=== PATIENT | male | born 1945 | race Caucasian/White ===

== ENCOUNTER 2017-10-23 01:32 | Inpatient (IN) | payer OTHER, MEDICARE ==
[~2017-10-23] VITALS: Ht 188 cm; Wt 81.6 kg
[~2017-10-23 01:32] MED LIST: AMLODIPINE BESY10 M1 PO; ASPIRIN81 M4 PO; CITRUCEL500 M1 PO; FLOMAX0.4 M1 PO; FLUTICASONE PRO16 GM NASB; FUROSEMIDE20 M1 PO; GLUCOSAMINE CO1 EAC1 PO; NEXIUM40 M1 PO
--- NOTE | 2017-10-23 09:08 | Admission Core Measures ---
Acute Coronary Syndrome (CM) ACS Core Measures Acute Coronary Syndrome Diagnosis No Congestive Heart Failure (NEW) CHF Core Measures Congestive Heart Failure Diagnosis No Cerebrovascular Accident (NEW) CVA Core Measures CVA/TIA Diagnosis No Venous Thromboembolism VTE Core Micheal (View Protocol) VTE Risk Factors Surgery No Mechanical VTE Prophylaxis d/t N/A MechProphylax Ordered No VTE Pharm Prophylaxis d/t NA PharmProphylax ordered Problem List As ranked by this Provider includes Assessment & Plan 1. Unilateral primary osteoarthritis, right hip HOME MEDS Home Med List Amlodipine Besylate 10 MG TABLET 1 TAB PO DAILY BP (Reported) Aspirin (Aspirin*) 81 MG TAB.CHEW 1 TAB PO DAILY HEART HEALTH (Reported) Esomeprazole (Nexium) 40 MG CAPSULE.DR 1 CAP PO DAILY REFLUX (Reported) Fluticasone Propionate 50 MCG/ACTUATION SPRAY.SUSP 2 SPRAY [place] DAILY ALLERGIES (Reported) Furosemide 20 MG TABLET 1 TAB PO DAILY BP (Reported) Glucosamine/D3/Boswellia Mercy (Glucosamine Complex Tablet) 1,500 MG-400 UNIT- 100 MG TABLET 1 PO DAILY SUPP (Reported) Methylcellulose (Citrucel) 500 MG TABLET 1 PO DAILY CONSTIPATION (Reported) Tamsulosin HCl (Flomax) 0.4 MG CAP.ER.24H 2 CAP PO DAILY PROSTATE (Reported)
[2017-10-23] MEDS ORDERED: DILAUDID2 M1 PO (09:09)
[2017-10-23] MEDS ORDERED: MIRALAX17 G1 PO (09:09)
[2017-10-23] MEDS ORDERED: COLACE100 M1 PO (09:09)
[2017-10-23] MEDS ORDERED: MS CONTIN15 M3 PO (09:09)
[2017-10-23] MEDS ORDERED: ASPIRIN EC325 M2 PO (09:09)
--- NOTE | 2017-10-23 09:13 | Patient Discharge Instructions ---
Discharge Instructions General Discharge Information You were seen/treated for: Right hip pain related to unilateral primary osteoarthritis You had these procedures: Right total hip replacement Watch for these problems: Increasing pain despite the use of pain medication Increasing redness, warmth or swelling Drainage of any type from incision Inability to bear weight on operative leg Persistent nausea and vomiting Fever greater than 101.5 degrees Do not soak the wound: Yes No bath, but you may shower: Yes Other wound care: Please keep wound clean and dry. No ointments or lotions of any type on or near incision at any time. No exceptions. Your dressing will be changed by your nurse on the second day after your surgery. Daily dry dressing changes are recommended each day thereafter. Do not soak your wound in a bath at any time until otherwise indicated by your surgeon. You may shower, please dry wound immediately after shower with a clean towel. Special Instructions: Aspirin: You are taking this medication to help prevent blood clot formation. Please take with food to protect your stomach lining. Please take as directed. Constipation: Pain medication can cause constipation. Dr. Knott has recommended that you take Colace and miralax each day. You may discontinue this medication if you develop loose stool or diarrhea. If you wish to continue this medication, it is available over the counter. If you are unable to move your bowels after several days, if you are unable to pass gas and are developing bloating, nausea, or vomiting as a result, please contact your doctor. Diet Continue normal diet: Yes Recommended Diet: Regular Activity Full Activity/No Limits: No Activity Self Limited: Yes Pounds, do NOT lift more than: 10 Acute Coronary Syndrome Inclusion Criteria At DC or during hospital stay patient has or had the following: ACS DIAGNOSIS No Discharge Core Measures Meds if any: Prescribed or Continued at Discharge Meds if any: NOT Prescribed or Continued at Discharge Congestive Heart Failure Inclusion Criteria At DC or during hospital stay patient has or had the following: CHF DIAGNOSIS No Discharge Core Measures Meds if any: Prescribed or Continued at Discharge Meds if any: NOT Prescribed or Continued at Discharge Cerebrovascular accident Inclusion Criteria At DC or during hospital stay patient has or had the following: CVA/TIA Diagnosis No Discharge Core Measures Meds if any: Prescribed or Continued at Discharge Meds if any: NOT Prescribed or Continued at Discharge Venous thromboembolism Inclusion Criteria VTE Diagnosis No VTE Type NONE VTE Confirmed by (Test) NONE Discharge Core Measures - Per Current guidelines, there needs to be overlap - treatment for the first 5 days of Warfarin therapy. - If discharged on Warfarin prior to 5 days of - overlap therapy, the patient will need to be - assessed for post discharge needs including - *Post discharge parental anticoagulation - *Warfarin and/or parental anticoagulation education - *Follow up date to check INR post discharge At least 5 days overlap therapy as Inpatient No Meds if any: Prescribed or Continued at Discharge Note: Overlap Therapy is Warfarin and Anticoagulant Meds if any: NOT Prescribed or Continued at Discharge
--- NOTE | 2017-10-23 09:14 | Surgical Discharge Summary ---
Visit Information Visit Dates Admission Date: 10/23/17 History of Present Illness Chief Complaint: Right hip pain related to unilateral primary osteoarthritis Surgical History Pertinent Surgical History: non-contributory Review of Systems: See H&P Hospital Course Course Attending Physician: Tonio Knott MD Primary Care Physician: Drew Hernandez MD Hospital Course: Patient was admitted to the hospital for an elective total joint replacement. The procedure was tolerated well and patient was transferred to a general surgical floor. Diet was advanced and tolerated, and the patient voided spontaneously. The patient was evaluated and treated by physical therapy. At the time of hospital discharge, the vital signs were stable, neurovascular status was intact, and pain was controlled with the use of oral pain medications. Allergies: Coded Allergies: Beta-Blockers (Beta-Adrenergic Bloc (UNKNOWN 10/22/17) PER [facility] PRE-OP ORDER SHEET. -CG 10/22/17 irbesartan (From AVAPRO) (UNKNOWN 10/22/17) PER [facility] PRE-OP ORDER SHEET. -CG 10/22/17 Disposition Summary Disposition Principal Diagnosis: Right hip unilateral primary osteoarthritis Additional Diagnosis: None Discharge Disposition: home health services Discharge Instructions General Discharge Information Code Status: Full Code Patient's Diet: Regular, advance as tolerated Patient's Activity: Weight-bear as tolerated Follow-Up Instructions/Appts: Follow up with Dr. Knott in 6 weeks from date of surgery. Please call his office to arrange and/or confirm this appointment. Medications at Discharge Discharge Medications: Stop taking the following medications: Aspirin (Aspirin*) 81 MG TAB.CHEW ORAL DAILY Methylcellulose (Citrucel) 500 MG TABLET ORAL DAILY Continue taking these medications: Amlodipine Besylate (Amlodipine Besylate) 10 MG TABLET 1 Tablet ORAL DAILY Esomeprazole (Nexium) 40 MG CAPSULE.DR 1 Capsule ORAL DAILY Fluticasone Propionate (Fluticasone Propionate) 50 MCG/ACTUATION SPRAY.SUSP 2 [place] Both sides of nose DAILY Furosemide (Furosemide) 20 MG TABLET 1 Tablet ORAL DAILY Glucosamine/D3/Boswellia Mercy (Glucosamine Complex Tablet) 1,500 MG-400 UNIT- 100 MG TABLET 1 ORAL DAILY Tamsulosin HCl (Flomax) 0.4 MG CAP.ER.24H 2 Capsule ORAL DAILY Start taking the following new medications: Aspirin (Ecotrin*) 325 MG TABLET.DR 1 Tablet ORAL TWICE DAILY Qty = 60 No Refills Docusate Sodium (Colace) 100 MG CAPSULE 1 Capsule ORAL TWICE DAILY Qty = 14 No Refills Instructions: DISCONTINUE USE IF YOU DEVELOP LOOSE STOOL OR DIARRHEA Polyethylene Glycol 3350 (Miralax) 17 GRAM POWD.PACK 1 Packet ORAL DAILY Qty = 7 No Refills Instructions: dissolve in water, DISCONTINUE USE IF YOU DEVELOP LOOSE STOOL OR DIARRHEA Morphine Sulfate (Ms Contin) 15 MG TABLET.ER 1 Tablet ORAL TWICE DAILY Qty = 6 No Refills Hydromorphone HCl (Dilaudid) 2 MG TABLET 1-2 Tablet ORAL EVERY 4-6 HOURS NEEDED as needed for PAIN Qty = 36 No Refills
--- NOTE | 2017-10-23 10:00 | RADIOLOGY REPORT ---
EXAMINATION: XR HIP, RIGHT CLINICAL INFORMATION: Status post right total hip replacement.. COMPARISON: There are no prior studies for comparison. TECHNIQUE: AP and crosstable lateral views of the right hip. FINDINGS: A bipolar right hip prosthesis is present. Postsurgical changes are present in the overlying soft tissues. The bipolar prosthesis is near anatomic in alignment. The surrounding [place] bony structures are unremarkable. IMPRESSION: Bipolar right hip prosthesis in anatomic alignment, soft tissue postsurgical changes.
[2017-10-23 12:00] VITALS: BP 138/80
--- NOTE | 2017-10-23 12:51 | PN- Orthopedic ---
Subjective Subjective: POSTOP CHECK Patient reports pain is well controlled. He reports lightheadedness and felt like he was walking on air when he attempted to ambulate with PT. PT informed the patient that they would return in an hour to work with him. He states he tolerated lunch and denies voiding yet. Objective Vital Signs and I&Os Intake & Output 10/23 1600 10/23 0800 10/23 0000 10/22 1600 10/22 0800 10/22 0000 Intake Total Output Total Balance Patient 180 lb Weight Physical Exam: Vitals - afebrile, VSS Gen - resting comfortably accompained by his in NAD Cardiac - S1S2 noted, RRR Lungs - CTAB Abd - soft, nt, nd Ext - R hip dressing c/d/i, surronding swelling noted, moves all extremities, sensory and motor intact. Alps in place, no edema or calf tenderness B/L Current Medications: Current Medications Sig/Vanessa Start time Last Medication Dose Route Stop Time Status Admin Acetaminophen 1,000 MG Q6 10/23 1200 AC 10/23 IV 10/24 0601 1203 Acetaminophen 0 .STK-MED ONE 10/23 0718 DC PO Acetaminophen 975 MG ONCE 10/23 0000 DC PO 10/23 2359 Amlodipine Besylate 10 MG DAILY 10/24 1000 AC PO Amlodipine Besylate 10 MG DAILY 10/23 1000 DC PO Aspirin 325 MG BID 10/23 1000 AC PO Cefazolin Sodium 2 GM IQ8 10/23 1600 AC N/A 1 UNIT IV 10/24 0029 Cefazolin Sodium 2,000 MG ONCE 10/23 0000 DC IV 10/23 2359 Dextrose/Sodium 1,000 ML .[id number] 10/23 1145 AC 10/23 Chloride IV 1158 Docusate Sodium 100 MG BID 10/23 1000 AC PO Furosemide 20 MG DAILY 10/24 1000 AC PO Furosemide 20 MG DAILY 10/23 1000 DC PO Hydromorphone HCl 2 MG Q4P PRN 10/23 1145 AC PO Hydromorphone HCl 4 MG Q4P PRN 10/23 1145 AC PO Ketorolac 15 MG Q8P PRN 10/23 1145 AC Tromethamine IV 10/26 1139 Morphine Sulfate 2 MG Q2P PRN 10/23 1145 AC IV Omeprazole 40 MG DAILY AC 10/24 07 DC PO Omeprazole 40 MG DAILY AC 10/24 0700 AC PO Ondansetron HCl 4 MG Q6P PRN 10/23 1145 AC IV Oxycodone HCl 0 .STK-MED ONE 10/23 0718 DC PO Oxycodone HCl 10 MG ONCE 10/23 0000 DC PO 10/23 2359 Polyethylene Glycol 17 GM DAILY 10/23 1000 AC PO Promethazine HCl 12.5 MG Q6P PRN 10/23 1145 AC IV 10/30 0859 Tamsulosin HCl 0.8 MG DAILY 10/24 1000 AC PO Tamsulosin HCl 0.8 MG DAILY 10/23 1000 DC PO Results Last 48 Hours of Labs: SERVICE DATE: 10/23/17 EXAM TYPE: RAD - XRY-HIP 2-3 VIEWS, RIGHT EXAMINATION: XR HIP, RIGHT CLINICAL INFORMATION: Status post right total hip replacement.. COMPARISON: There are no prior studies for comparison. TECHNIQUE: AP and crosstable lateral views of the right hip. FINDINGS: A bipolar right hip prosthesis is present. Postsurgical changes are present in the overlying soft tissues. The bipolar prosthesis is near anatomic in alignment. The surrounding [place] bony structures are unremarkable. IMPRESSION: Bipolar right hip prosthesis in anatomic alignment, soft tissue postsurgical changes. Assessment/Plan Assessment/Plan 72 M POD 0 s/p R THR, awaiting PT eval PT eval, WBAT Reg diet, IVF Postop abx - ancef x2 Pain regimen prn Monitor postop void Home meds resumed DVT ppx - asa bid, alps, teds GI ppx on board Bowel regimen on board Encourage IS Anticipate d/c once cleared by PT Core Measures Venous Thromboembolism VTE Risk Factors Surgery No Mechanical VTE Prophylaxis d/t N/A MechProphylax Ordered No VTE Pharm Prophylaxis d/t NA PharmProphylax ordered
--- NOTE | 2017-10-23 15:00 | Operative Report ---
Operative/Inv Procedure Report Surgery Date: 10/23/17 Name of Procedure: Right total hip replacement Pre-Operative Diagnosis: Primary right hip DJD Post-Operative Diagnosis: Same Estimated Blood Loss: 250 Surgeon/Solar Technician: Hedy LITTLE,Tonio Valdovinos Anesthesia: block Operative/Procedure Note Note: Description of Procedure: The patient was taken to the operating room and positively identified. After induction of spinal anesthesia and administration of appropriate pre-operative antibiotics, the patient was positioned supine on the operating room table and all bony prominences were well padded. After performing a surgical timeout, the right lower extremity was prepped and draped in the usual sterile fashion. A direct anterior approach was made to the right hip. The incision was carried sharply through superficial soft tissues to the level of the fascia. Meticulous hemostasis was maintained with Bovie electocautery. The fascia over the tensor fascia elan muscle was opened sharply and the interval between the TFL and the sartorius was entered bluntly taking care to stay lateral to the lateral femoral cutaneous nerve. Retractors were placed around the femoral neck and the pericapsular fat was identified. The ascending branches of the lateral femoral circumflex vessels were identified and carefully coagulated. The pericapsular fat and anterior capsule were then resected. A napkin ring osteotomy was performed and the femoral head was removed without difficulty. Attention was then turned to the acetabulum. After appropriate placement of retractors, the acetabulum was exposed. Soft tissue was cleaned from the acetabular margin and notch. Overhanging osteophytes were removed and the teardrop was exposed. The acetabulum was then sequentially reamed to accept a 60 mm Olivia Tritanium hemispherical solid shell. This was impacted into place in the appropriate position and fitted with a 36 mm Trident X3 zero degree polyethylene insert. Attention was then turned to the femur. After performing the appropriate ligament releases, the proximal femur was exposed. It was then sequentially broached to accept a size 6 Olivia Accolade 2 stem. This was trialed for leg length and stability. The trial component was removed and the final component was impacted into place. The trunnion was carefully cleaned and fit with a 36 mm, +5 Biolox delta ceramic femoral head. The hip was reduced and put through a full range of motion and found to be stable. The articular space was then irrigated with sterile saline. The periarticular soft tissues were infilitrated with Marcaine. The fascial layer was closed with interrupted #1 vicryl suture and the skin was re-approximated with interrupted 2 -0 vicryl. The skin was closed with a running 3-0 V-Lock suture. Steri-strips and a sterile dressing were applied. The patient was awakened and taken to the recovery room in satisfactory condition.
== END 2017-10-23 16:45 | disposition home health service (06) | DRG 470 ==
LOC: SDA 01:32 → ENRESERV 10:09 → ENTRNSPT 10:56 → EDTRNSPTSTS 11:17 → EDTRNSPT 11:17 → 2NB 11:32 → CMPTRNSPT 11:32 → ENTRNSPT 16:34 → 2NB 16:45 → EDTRNSPTSTS 16:48 → EDTRNSPT 16:48 → CMPTRNSPT 17:03
PROC: 0SR904A Replacement of Right Hip Joint with Ceramic on Polyethylene Synthetic Substitute, Uncemented, Open Approach (ICD-10-PCS; principal; 2017-10-23)
DX: M16.11 Unilateral primary osteoarthritis, right hip (principal); I10 Essential (primary) hypertension; K21.9 Gastro-esophageal reflux disease without esophagitis; N40.0 Benign prostatic hyperplasia without lower urinary tract symptoms; Z86.73 Personal history of transient ischemic attack (TIA), and cerebral infarction without residual deficits
CPT/HCPCS: 2NBP; 73502-RT; 88305; 97110-GO; 97116-GO; 97161-GP; J0131; J0690; J0735; J2405; J2550; J3490; J7042